=== PATIENT | female | born 1955 | race Caucasian/White ===

== ENCOUNTER 2016-06-25 14:40 | Emergency (ER) | payer OTHER ==
[2016-06-25 14:49] VITALS: BP 119/68; PULSE 68; TEMP 98.1; BMI 29.2
[2016-06-25] MEDS ORDERED: OSELTAMIVIR PHOSPHATE 30 MG CAPSULE PO STA (16:14)
--- NOTE | 2016-06-25 16:20 | PDOC ---
History of Present Illness - General Chief Complaint: Cold Symptoms Stated Complaint: FEVER, BODYACHES, COUGH Time Seen by Provider: 06/25/16 15:58 History Source: Patient Exam Limitations: No Limitations - History of Present Illness Initial Comments: 06/25/16 16:14 Patient is here with complaints of generalized body aches for 2 days, fevers to 42, since last night, runny nose, ear and throat pain, and muscle aches. Has used [id number] medications with minimal resolved. States has a moist nonproductive cough. No Influenza Shot this year Timing/Duration: reports: just prior to arrival, getting worse Severity: reports: mild, moderate Associated Symptoms: reports: denies symptoms, cough, fever/chills Past History - Travel Traveled outside of the country in the last 30 days: No Close contact w/someone who was outside of country & ill: No - Past Medical History Allergies/Adverse Reactions: Allergies Allergy/AdvReac Type Severity Reaction Status Date / Time Penicillins AdvReac Severe Hives Verified 06/25/16 14:49 Home Medications: Ambulatory Orders Gabapentin 300 mg PO BID 01/26/15 Albuterol 0.083% Nebulizer Nellie [Ventolin 0.083% Nebulizer Soln -] 1 amp NEB Q4H PRN #0 amp 10/14/15 Atorvastatin Ca [Lipitor] 10 mg PO HS tablet 10/14/15 Heparin - 5,000 unit SQ BID vial 10/14/15 Oxycodone HCl [Roxicodone -] 5 mg PO Q4H PRN #0 tablet MDD 6 10/14/15 Pantoprazole Sodium [Protonix -] 40 mg PO DAILY tablet.ec 10/14/15 Oseltamivir Phosphate [Tamiflu -] 75 mg PO BID #10 capsule 06/25/16 Anemia: No Asthma: Yes Cancer: No Cardiac Disorders: No CVA: No COPD: No CHF: No Dementia: No Diabetes: No GI Disorders: No Disorders: No HTN: No Hypercholesterolemia: Yes Liver Disease: No Seizures: No Thyroid Disease: No - Immunization History Immunization Up to Date: Yes - Psycho/Social/Smoking Cessation Hx Suicidal Ideation: No Smoking History: Never smoked Have you smoked in the past 12 months: No Information on smoking cessation initiated: No Hx Alcohol Use: No Drug/Substance Use Hx: No Substance Use Type: None Review of Systems - Review of Systems Able to Perform ROS?: No Is the patient limited [place] proficient: No Constitutional: Yes: Symptoms Reported, See HPI, Chills, Fever, Loss of Appetite , Malaise HEENTM: Yes: Symptoms Reported, See HPI, Nose Congestion, Throat Pain Respiratory: Yes: Cough All Other Systems: Reviewed and Negative *Physical Exam - Vital Signs Last Vital Signs Temp Pulse Resp BP Pulse Ox 98.1 F 68 17 119/68 97 06/25/16 14:47 06/25/16 14:47 06/25/16 14:47 06/25/16 14:47 06/25/16 14:47 - Physical Exam General Appearance: Yes: Appropriately Dressed, Apparent Distress, Mild Distress (productive) HEENT: positive: MIK (glassy), Pharynx Normal Neck: positive: Supple, Lymphadenopathy (R), Lymphadenopathy (L). negative: Tender Respiratory/Chest: positive: Lungs Clear (coarse but clear), Normal Breath Sounds, Wheezing Cardiovascular: positive: Regular Rate Gastrointestinal/Abdominal: positive: Normal Bowel Sounds, Soft. 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 Avoid contact with others until fevers and cough resolved as this is very contagious Lots of handwashing and good hygiene Continue [id number] medications for symptomatic relief Tylenol or Motrin for fever and pain Take all of Tamiflu as directed: 1 tab every 12 hours for 5 days Followup with private physician in one to 2 days as needed or if worsening Return to emergency department for worsened symptoms, fevers, dehydration Influenza takes between 5 and 7 days for resolution To not participate in any activity, work, or school until fevers and cough are gone for at least one day *DC/Admit/Observation/Transfer Diagnosis at time of Disposition: Influenzal acute upper respiratory infection - Discharge Dispostion Disposition: HOME Condition at time of disposition: Stable Admit: No - Patient Instructions Printed Discharge Instructions: DI for Viral Upper Respiratory Infection -- Adult Additional Instructions: Rest, drink lots of fluids: Teas, water, soups, Pedialyte Saltwater gargles Steamy showers/seem to face break up mucus Old-fashioned treatments help! Avoid contact with others until fevers and cough resolved as this is very contagious Lots of handwashing and good hygiene Continue [id number] medications for symptomatic relief Tylenol or Motrin for fever and pain Take all of Tamiflu as directed: 1 tab every 12 hours for 5 days Followup with private physician in one to 2 days as needed or if worsening Return to emergency department for worsened symptoms, fevers, dehydration Influenza takes between 5 and 7 days for resolution To not participate in any activity, work, or school until fevers and cough are gone for at least one day
== END 2016-06-25 16:34 | disposition home or self-care (01) ==
LOC: JERFT 14:40
DX: J11.1 Influenza due to unidentified influenza virus with other respiratory manifestations (principal)
CPT/HCPCS: 99281-25